=== PATIENT | female | born 2005 | race Caucasian/White ===

== ENCOUNTER 2023-10-15 16:50 | Emergency (ER) | payer SELFPAY ==
[2023-10-15 17:08] VITALS: BP 111/52; PULSE 66; RESP 18; TEMP 98.3; BMI 23.5
[2023-10-15] MEDS ORDERED: KETOROLAC TROMETHAMINE 30 MG/1 ML VIAL ONE (17:44)
[2023-10-15] MEDS ORDERED: ACETAMINOPHEN 500 MG TABLET (FP) ONE (17:44)
[2023-10-15] MEDS: KETOROLAC TROMETHAMINE 30 MG/1 ML VIAL IM ONE (17:53)
[2023-10-15] MEDS: ACETAMINOPHEN 500 MG TABLET (FP) PO ONE (17:54)
== END 2023-10-15 19:01 | disposition left against medical advice (07) ==
LOC: JERFT 16:50 → JER 16:50 → JERFT 19:01
PROC: 3E0133Z Introduction of Anti-inflammatory into Subcutaneous Tissue, Percutaneous Approach (ICD-10-PCS; principal; 2023-10-15)
DX: R09.81 Nasal congestion (principal); R05.9 Cough, unspecified; Z20.822 Contact with and (suspected) exposure to COVID-19
CPT/HCPCS: 0241U-QW; 99284-25